=== PATIENT | female | born 1995 | race Caucasian/White ===

== ENCOUNTER 2016-12-11 05:00 | Inpatient (IN) | payer BC ==
[~2016-12-11] VITALS: Ht 162.6 cm; Wt 80.3 kg
[2016-12-11] MEDS ORDERED: OXYTOCIN/NORMAL SALINE 1,000 ML IV SCH (05:29)
[2016-12-11] MEDS ORDERED: NALBUPHINE HCL 10 MG/ML AMP IVP PRN (05:30)
[2016-12-11] MEDS ORDERED: TERBUTALINE SULFATE 1 MG/ML VIAL SUBCUT ONE (05:30)
[2016-12-11] MEDS ORDERED: OXYTOCIN/NORMAL SALINE 1,000 ML IV ONE ×2 (05:46→14:40)
[2016-12-11] MEDS: LR 1,000 ML IV SCH ×2 (05:50→10:47)
[2016-12-11 07:29] LABS: BASOPHILS % (AUTO) 0.4 % (0.0-2.0); EOSINOPHILS % (AUTO) 0.7 % (0.0-4.0); HEMATOCRIT 37.4 % (36-48); HEMOGLOBIN 12.2 g/dL (12.0-16.0); LYMPHOCYTES # (AUTO) 1.9 K/uL (1.0-5.5); MEAN CORPUSCULAR HEMOGLOBIN 30 pg (27-31); MEAN CORPUSCULAR HGB CONC 33 % (32-36); MEAN CORPUSCULAR VOLUME 91 fL (79.0-98.0); MONOCYTES # (AUTO) 0.4 K/uL (0.0-1.0); MONOCYTES % (AUTO) 6.7 % (1.7-9.3); NEUTROPHILS # (AUTO) 3.9 K/uL (1.8-7.7); NEUTROPHILS % (AUTO) 61.2 % (40.0-70.0); PLATELET COUNT (AUTO) 200 K/uL (130-430); RED BLOOD CELL COUNT(AUTO) 4.11 MIL/uL (4.2-6.2); RED CELL DISTRIBUTION WIDTH 13.1 % (9.0-15.0); WHITE BLOOD COUNT (AUTO) 6.2 K/uL (4.8-10.8)
[2016-12-11 08:03] VITALS: BP 125/76; PULSE 85; RESP 18; TEMP 98
[2016-12-11] MEDS ORDERED: FENT2mCg/mL-ROPIVA0.2%/NS EPID 150 ML EP ONE (10:12)
[2016-12-11] MEDS ORDERED: FENT2mCg/mL-ROPIVA0.2%/NS EPID 150 ML EP SCH (10:30)
[2016-12-11] MEDS ORDERED: ePHEDrine sulfate 50 MG/ML VIAL IVP PRN (10:30)
[2016-12-11] MEDS ORDERED: LR 500 ML IV ONE (10:30)
[2016-12-11] MEDS ORDERED: HYDROCORTISONE 0.5%, 28.35 GM TOPICAL CREAM TP PRN (14:45)
[2016-12-11] MEDS ORDERED: DERMOPLAST SPRAY TP PRN (14:45)
[2016-12-11] MEDS ORDERED: GLYCERIN/WITCH HAZEL (TUCKS PADS) TP PRN (14:45)
[2016-12-11] MEDS ORDERED: LANOLIN 7 GM OINT. TP PRN (14:45)
[2016-12-11] MEDS ORDERED: HYDROcodone/ACETAMIN 5-325 MG TAB (NORCO/ VICODIN) PO PRN ×2 (14:45)
[2016-12-11] MEDS ORDERED: ANUSOL 1 EA SUPP.RECT (PREPARATION H) RC PRN (14:45)
[2016-12-11] MEDS: IBUPROFEN 800 MG TABLET PO PRN ×2 (17:54→23:49)
[2016-12-11] MEDS ORDERED: TEMAZEPAM 15 MG CAPSULE PO PRN (21:00)
[2016-12-11] MEDS: DOCUSATE SODIUM 100 MG CAPSULE PO PRN (23:49)
[2016-12-12] MEDS: IBUPROFEN 800 MG TABLET PO PRN ×2 (06:08→12:15)
[2016-12-12 07:30] LABS: BASOPHILS % (AUTO) 0.2 % (0.0-2.0); EOSINOPHILS # (AUTO) 0.1 K/uL (0.0-0.4); EOSINOPHILS % (AUTO) 0.8 % (0.0-4.0); HEMATOCRIT 32.8 % (36-48); LYMPHOCYTES % (AUTO) 20.4 % (20.5-51.5); MEAN CORPUSCULAR HEMOGLOBIN 31 pg (27-31); MEAN CORPUSCULAR HGB CONC 34 % (32-36); MEAN CORPUSCULAR VOLUME 91 fL (79.0-98.0); MONOCYTES # (AUTO) 0.6 K/uL (0.0-1.0); MONOCYTES % (AUTO) 6.5 % (1.7-9.3); NEUTROPHILS # (AUTO) 7.2 K/uL (1.8-7.7); NEUTROPHILS % (AUTO) 72.1 % (40.0-70.0); PLATELET COUNT (AUTO) 163 K/uL (130-430); RED BLOOD CELL COUNT(AUTO) 3.62 MIL/uL (4.2-6.2); RED CELL DISTRIBUTION WIDTH 13.1 % (9.0-15.0); WHITE BLOOD COUNT (AUTO) 9.9 K/uL (4.8-10.8)
[2016-12-12] MEDS: DOCUSATE SODIUM 100 MG CAPSULE PO PRN (12:15)
== END 2016-12-12 16:45 | disposition home or self-care (01) | DRG 775 ==
LOC: SPU 05:00
PROVIDERS: ADMIT Obstetrics & Gynecology; ATTEND Obstetrics & Gynecology
PROC: 10E0XZZ Delivery of Products of Conception, External Approach (ICD-10-PCS; principal; 2016-12-11)
PROC: 3E0S3CZ (ICD-10-PCS; 2016-12-11)
PROC: 00HU33Z Insertion of Infusion Device into Spinal Canal, Percutaneous Approach (ICD-10-PCS; 2016-12-11)
DX: O36.5930 Maternal care for other known or suspected poor fetal growth, third trimester, not applicable or unspecified (principal); Z37.0 Single live birth; Z3A.38 38 weeks gestation of pregnancy
CPT/HCPCS: 36415; 81002-TC; 85025; 86592; 86886; 86900; 86901; J2590; J3010